=== PATIENT | male | born 1960 | race Caucasian/White ===

== ENCOUNTER → 2018-02-08 06:40 | Outpatient (CLI) | payer OTHER, SELFPAY ==
--- NOTE | 2018-02-08 06:42 | ECHOD_ITS ---
Reason For Study: CAD Procedure This was a 2D Doppler, Color Flow transthoracic echocardiogram. Exam performed in department. Left Ventricle Normal LV size. Left ventricular systolic function is normal. The estimated ejection fraction is 60 %. Normal diastology for age. No regional wall motion abnormalities noted. Right Ventricle Normal RV size. Normal systolic function. Atria Normal left atrium. Normal right atrium. Mitral Valve Normal mitral valve. Mild (1+) eccentric mitral valve insufficiency. Tricuspid Valve Normal tricuspid valve. Aortic Valve Normal aortic valve. Pulmonic Valve Normal pulmonic valve. Great Vessels Normal aortic root. The pulmonary artery is normal size. Normal inferior vena cava. Pericardium/Pleural No pericardial effusion. MMode/2D Measurements & Calculations LVIDd: 4.6 cm IVSd: 1.1 cm Ao root diam: 2.9 cm LVIDs: 3.7 cm LVPWd: 1.2 cm LA dimension: 3.6 cm RVDd: 2.9 cm FS: 20.8 % LAV(MOD-bp): 33.1 ml LA A4 area: 13.0 cm2 RA A4 area: 13.6 cm2 LAV(MOD-bp) Indexed: 17.0 ml/m2 LAV(MOD-sp2): 38.0 ml LAV(MOD-sp4): 28.6 ml Doppler Measurements & Calculations MV E max hao: 70.3 cm/sec Lat Peak E' Hao: 7.8 cm/sec Med Peak E' Hao: 6.1 cm/sec MV A max hao: 58.6 cm/sec E/E' lat: 9.1 E/E' med: 11.4 MV E/A: 1.2 Ao V2 max: 116.9 cm/sec LV V1 max: 98.1 cm/sec PA V2 max: 102.9 cm/sec Ao max P.5 mmHg LV V1 max P.8 mmHg Interpretation Summary Normal LV size. Left ventricular systolic function is normal. The estimated ejection fraction is 60 %. Normal diastology for age. Mild (1+) eccentric mitral valve insufficiency. Structurally normal valves. Ordering Physician: Frantz Treviño Referring Physician: MD Antoni Monty Performed By: Riana Mccarty, SANDI
--- NOTE | 2018-02-08 09:16 | STRESSREP ---
Stress Test Report Exercise myocardial perfusion stress test. 57-year-old man with a history of atherosclerotic cardiovascular disease. Medications Toprol Plavix aspirin metformin atorvastatin. Stress protocol. Resting EKG demonstrates normal sinus rhythm with a rate of 70 bpm normal intervals and noted resting blood pressure 142/84 mmHg. The patient exercised according to regular Goyo protocol for total duration of 8 minutes attaining 123 bpm which was 76% maximum predicted heart rate the maximum workload attained was 10.1 metabolic equivalents. The patient maintained sinus rhythm throughout the recording. At rest there were no ST or T-wave changes noted suggest ischemia peak exercise upsloping ST changes only were noted with no meet the criteria for ischemia. The resting blood pressure is 142/84 with a peak blood pressure 170/80 mmHg. Myocardial perfusion protocol. 11.9 mCi of technetium 99m sestamibi was injected at rest. The patient exercised according to regular Goyo protocol for 8 minutes attaining 10.1 metabolic equivalents. At rest there were no ST or T-wave changes noticed ischemia peak exercise 33.9 mCi of technetium 99m sestamibi was injected stress images were obtained stress and rest images were reconstructed and compared in the short axis vertical long and horizontal long axis. Gated images were also obtained Perfusion SPECT analysis. Review of the stress images demonstrate normal uptake of tracer noted in all areas of the myocardium. The resting images similarly demonstrate normal uptake of tracer noted in all areas of the myocardium. No areas of reversibility are noted suggest ischemia no previous infarct is noted. Gated SPECT analysis: The gated ejection fraction is 62%. Conclusion: Normal exercise myocardial perfusion stress test at a high workload. Preserved ejection fraction. No clinical angina noted.
== END ==
PROVIDERS: Family Provider Family Medicine; PCP Family Medicine; Visit Provider Internal Medicine Cardiovascular Disease
DX: I25.10 Atherosclerotic heart disease of native coronary artery without angina pectoris (principal)
CPT/HCPCS: 78452; 93017; 93306; A9500; A4216

== ENCOUNTER 2018-09-29 10:19 | Emergency (ER) | payer OTHER, SELFPAY ==
[2018-09-29 10:21] VITALS: BP 141/97; PULSE 81; RESP 14; TEMP 36.6; O2SAT 95; BMI 28.5
[2018-09-29] MEDS: 0.9% Normal Saline 1,000 ML 1000 ML IV (11:19)
[2018-09-29 11:20] VITALS: BP 157/84; PULSE 69; RESP 14; O2SAT 98
[2018-09-29 11:24] LABS: Absolute Lymphocyte Count 1.11 X10^3/ul (0.83-4.51); Absolute Neutrophil Count 4.5 X10^3/uL (2.0-7.7); Basophil% 0.3 % (0-1); Eosinophil# 0.08 X10^3/uL; Eosinophils% 1.3 % (0-5); Hematocrit 49.8 % (40-54); Lymphocyte # 1.11 X10^3/ul (4.0); Lymphocyte % 18.1 % (19-41); Mean Corp Hgb Conc 34.1 g/gl (32-36); Mean Corpuscular Hgb 31.6 pg (27.0-32.0); Mean Corpuscular Volume 92.6 fL (80-94); Mean Platelet Vol. 9.8 fl (6.2-12.0); Monocyte# 0.45 X10^3/uL; Monocyte% 7.4 % (0-10); Neutrophil # 4.46 X10^3/uL (2.7-7.7); Neutrophil % 72.9 % (47-70); Platelet Count 174 K/mm3 (150-450); RBC Distribution Width CV 13.9 % (11.6-14.6); RBC Distribution Width SD 46.6 fl (35.1-43.9); Red Blood Count 5.38 M/mm3 (4.6-6.2); White Blood Count 6.1 K/mm3 (4.4-11.0)
[2018-09-29 11:25] LABS: Basophil# 0.02 X10^3/uL; POSITIVE COUNT NO; POSITIVE DIFFERENTIAL NO; POSITIVE MORPHOLOGY NO
[2018-09-29 11:35] LABS: Anion Gap 8 (5-15); BUN 10 mg/dL (7-18); BUN/Creat Ratio 9.9 RATIO (10-20); Calcium,Total 8.5 mg/dL (8.5-10.1); Chloride 104 mmol/L (98-107); Creatinine, Serum 1.01 mg/dL (0.70-1.30); EST Glomerular Filtration Rate 80 mL/min (>60); Est Glom Filt Rate - Afr Amer 97 mL/min (>60); Estimated Creatinine Clearance 76.19 ml/min; Glucose 200 mg/dL (74-106); Potassium 4.5 mmol/L (3.5-5.1); Sodium Level 139 mmol/L (136-145)
[2018-09-29 13:04] VITALS: BP 132/79; PULSE 71; RESP 14; O2SAT 95
[2018-09-29 13:18] VITALS: BP 139/85; BP 142/97; BP 153/100; PULSE 73; PULSE 77; PULSE 85
--- NOTE | 2018-09-29 13:35 | ED.VISSUMM ---
- ER Visit Summary Date of Service: 09/29/18 Chief Complaint: Dizziness History of Present Illness: The patient is a 58 M who presents with dizziness that has been constant for the past 2 days. Patient states his dizziness is worse with sitting and standing. Patient states he feels lightheaded when he sits up or stands up. Patient states this is similar to the symptoms he had before when he was dehydrated. Patient states his dizziness improves when he lays flat. Patient denies any spinning sensation. Patient admits to some nausea but denies any vomiting. Patient denies any chest pain or shortness of breath. Physical Examination: Vital signs are stable. Patient is afebrile. Patient is in no acute distress. Cranial nerves II through XII are intact. There are no focal motor or sensory deficits noted. Pupils are equal, round, and reactive to light bilaterally. Extra ocular muscles are intact. Oral mucosa is pink and moist. Neck is supple. Trachea is midline. No JVD noted. Heart was regular rate and rhythm. Lungs are clear and equal bilateral. Abdomen is soft nontender. The remaining physical exam is within normal limits. Test Results: CBC and basic metabolic profile were obtained and were essentially within normal limits. Emergency Department Course and Treatment: Patient was given IV fluids here. Orthostatic vital signs were obtained and were normal. Patient felt better on reevaluation. Patient was instructed to follow-up with his primary care physician in 5-7 days. Patient understood and was agreeable with the plan. All questions were answered. Disposition: Discharge home Impression: Mild dehydration This note was generated with [employer] dictation software. It may contain incorrect words, spelling, and punctuation that were not noted in review of the chart prior to signing ED Disposition - Plan for ED Patient: Disposition: Home or Assisted Living Chief Complaint: Dizziness Diagnosis: Dehydration, mild Instructions: ED Dehydration Referrals: Monty Corrales MD [Primary Care Provider] -
[2018-09-29 14:08] VITALS: BP 145/90; PULSE 75; RESP 19; O2SAT 96
== END 2018-09-29 14:08 | disposition home or self-care (01) ==
PROVIDERS: Emergency Provider Emergency Medicine; Family Provider Family Medicine; PCP Family Medicine
DX: E86.0 Dehydration (principal); I25.2 Old myocardial infarction; E11.9 Type 2 diabetes mellitus without complications; Z79.82 Long term (current) use of aspirin; Z79.84 Long term (current) use of oral hypoglycemic drugs; Z79.899 Other long term (current) drug therapy
CPT/HCPCS: 80048; 85025; 96360; 96361; 99285; J7030; A4216

== ENCOUNTER → 2018-10-30 11:00 | Outpatient (CLI) | payer OTHER, SELFPAY ==
[2018-10-30 10:37] VITALS: BMI 28.5
--- NOTE | 2018-10-30 11:16 | RAD_ITS ---
STUDY: X-RAY CHEST REASON FOR EXAM: Male, 58 years old. Cough. TECHNIQUE: Frontal and lateral views of the chest. COMPARISON: January 28, 2016 FINDINGS: There is stable mild hyperexpansion with granulomatous calcification. There is no demonstrated pleural abnormality. Normal size heart. Normal mediastinum and ray. Normal visualized pulmonary arteries. Normal visualized aortic arch and descending thoracic aorta. Normal visualized thoracic spine. Normal visualized ribs, clavicles, and shoulders. There is no demonstrated abnormality of the visualized soft tissue structures of the upper abdomen. RAD/Chest PA and Lateral IMPRESSION: Stable appearance of the chest with no new or acute finding. Electronically Signed: Ted Rubalcava MD at 11:41 EST , Service support ,
== END ==
PROVIDERS: Family Provider Family Medicine; PCP Physician Assistant Surgical; Visit Provider Physician Assistant Surgical
DX: J20.9 Acute bronchitis, unspecified (principal)
CPT/HCPCS: 71046

== ENCOUNTER 2021-11-12 09:35 | Outpatient (CLI) | payer OTHER, SELFPAY ==
[2021-11-12] MEDS: 0.9% Saline Lock 10 ML Syringe IV ×2 (09:57→10:54)
[2021-11-12 09:58] VITALS: BP 155/92; PULSE 82; RESP 18; TEMP 36.4; O2SAT 99; BMI 28.1
[2021-11-12 10:19] VITALS: BP 154/100; PULSE 81; RESP 16; TEMP 36.8; O2SAT 99
[2021-11-12 10:50] VITALS: BP 159/100; PULSE 80; RESP 18; TEMP 37.2; O2SAT 97
[2021-11-12] MEDS: DiphenhydrAMINE 50 MG/ML Syringe IV (10:54)
--- NOTE | 2021-11-12 10:54 | NURSING ---
Pt c/o itching to lower abdomen. Pty has redness/rash/hives noted to lower abdomen and redness to entire back. Pt denies any other complaints other than itching. Pt medicated w/ benadryl per orders. No s/s of resp difficulty noted. VSS. Will cont to monitor.
[2021-11-12 11:26] VITALS: BP 145/89; PULSE 78; RESP 16; TEMP 36.7; O2SAT 97
[2021-11-12 12:09] VITALS: BP 144/88; PULSE 84; RESP 16; TEMP 36.8; O2SAT 98
== END 2021-11-12 23:59 | disposition home or self-care (01) ==
LOC: MS3OUT 09:36 → MS3 09:36
PROVIDERS: PCP Family Medicine; Referring Provider Nurse Practitioner Adult Health; Visit Provider Nurse Practitioner Adult Health
DX: Z23 Encounter for immunization (principal); E11.9 Type 2 diabetes mellitus without complications; U07.1 COVID-19
CPT/HCPCS: J7050; M0243; A4216; Q0244

== ENCOUNTER 2022-02-08 12:16 | Outpatient (CLI) | payer OTHER, SELFPAY ==
[2022-02-08 12:26] LABS: Hematocrit 51.8 % (40-54); Hemoglobin 17.8 g/dL (13.0-16.5); Mean Corp Hgb Conc 34.4 g/dL (32-36); Mean Corpuscular Volume 90.2 fL (80-94); Mean Platelet Vol. 10.6 fl (6.2-12.0); Platelet Count 251 K/mm3 (150-450); RBC Distribution Width CV 14.6 % (11.6-14.6); RBC Distribution Width SD 48.5 fl (35.1-43.9); Red Blood Count 5.74 M/mm3 (4.6-6.2); White Blood Count 8.3 K/mm3 (4.4-11.0)
[2022-02-08 12:37] LABS: Albumin, Serum 3.8 g/dL (3.2-5.0); BUN 73 mg/dL (7-18); BUN/Creat Ratio 23.5 RATIO (10-20); Calcium,Total 8.2 mg/dL (8.5-10.1); Chloride 90 mmol/L (98-107); EST Glomerular Filtration Rate 22 mL/min (>60); Est Glom Filt Rate - Afr Amer 26 mL/min (>60); Glucose 285 mg/dL (74-106); Phosphorus 7.3 mg/dL (2.5-4.9); Potassium 5.1 mmol/L (3.5-5.1); Sodium Level 130 mmol/L (136-145)
== END 2022-02-08 23:59 | disposition home or self-care (01) ==
LOC: LABSPEC 12:18
PROVIDERS: PCP Family Medicine; Visit Provider Nurse Practitioner
DX: E86.0 Dehydration (principal)
CPT/HCPCS: 80069; 85027

== ENCOUNTER 2022-02-08 14:16 | Inpatient (IN) | payer OTHER, SELFPAY ==
[2022-02-08 14:17] VITALS: BP 101/82; PULSE 122; RESP 16; TEMP 36.1; O2SAT 92; BMI 28.7
[2022-02-08 14:20] VITALS: BP 101/82; PULSE 122; RESP 16; TEMP 36.1; O2SAT 92
--- NOTE | 2022-02-08 14:56 | ED.RN ---
PTS FAMILY MEMBER CAME UP STATING PT HAS ACUTE KIDNEY INJURY ACCORDING TO PCP OFFICE. VERIFIED WE DO HAVE TEST RESULTS FROM PCP OFFICE AND WILL GET THE PT BACK SOON WE CAN. APOLOGIZED FOR THE BUT REITERATED HE WILL GO TO A ROOM SOON WE CAN
--- NOTE | 2022-02-08 15:13 | ED.RN ---
PTS FAMILY MEMBER CAME UP ASKING WHY HE WASN'T IN A ROOM YET IF WE KNEW HE HAD ACUTE KIDNEY INJURY. AGAIN EXPLAINED WE DIDN'T HAVE A ROOM AVAILABLE AND WOULD AGAIN GET HIM BACK SOON WE CAN. ASKED IF PT COULD LAY ON THE FLOOR AND TOLD HER NO THAT WOULD NOT BE APPROPRIATE AND WE WOULD AGAIN GET HIM BACK SOON WE COULD.
--- NOTE | 2022-02-08 15:21 | ED.RN ---
PT FAMILY MEMBER TOLD SCREENER HE WAS GOING TO LAY ON THE FLOOR AND DIDN'T CARE WHAT THE NURSE SAID. THE FAMILY MEMBER THEN TOOK A PICTURE OF THE PT LAYING ON THE FLOOR WITH HER PHONE. THIS NURSE WENT AND EXPLAINED THAT HE CAN NOT LAY ON THE FLOOR IN THE HALLWAY AND IT WAS NOT SAFE FOR HIM OR OTHER TO DO SO. DURING THIS CONVERSATION PT STATED HE WAS HAVING SOME PAIN. EXPLAINED I WOULD GET HIM BACK SOON I COULD. HE GOT UP OFF THE FLOOR WITHOUT DIFFICULTY. FAMILY MEMBER WAS ALSO TAKING PICTURE OF THIS NURSE WITH HER PHONE AND THIS NURSE ASKED THAT SHE NOT DO THAT. FAMILY MEMBER THEN TOOK ANOTHER PICTURE AT WHICH TIME THIS NURSE STATED SECURITY COULD COME OUT IF THERE WAS GOING TO BE CONTINUED PROBLEMS. CHARGE NURSE WAS NOTIFIED OF THE SITUATION
--- NOTE | 2022-02-08 15:39 | EX.ED.DYSGE1 ---
HPI History of Present Illness Chief Complaint: Abn Labs Informant: patient Narrative Narrative: Patient's had nausea vomiting and diarrhea for 3 days. It is slightly better today but he still cannot take p.o. If he tries to drink anything he vomits. He has never vomited blood. He denies fever. About a day or so into this he started to get some epigastric discomfort but he thinks that is just from vomiting. His symptoms did not start with abdominal pain. He denies fevers or chills. He has no cough trouble breathing. He denies urinary symptoms. He states his sister had the same symptoms recently but she is now better. He was around her several times in the past week. Patient had 2 Pfizer immunizations and COVID in November. No prior abdominal surgeries. He has not been on any antibiotics that he knows. He does not think he was on any during Covid. [facility] Medical History (Updated 02/08/22 @ 17:[address] Barrera Pearl MD) Atherosclerotic heart disease of [place] coronary artery without angina pectoris DM w/o complication type II, uncontrolled Essential (primary) hypertension History of dehydration History of non-ST elevation myocardial infarction (NSTEMI) (04/16/10) Hyperlipidemia Shoulder pain Home Medications aspirin 81 mg tablet,delayed release 81 mg PO DAILY 10/30/18 [History Last Taken Unknown] losartan 25 mg tablet 25 mg PO DAILY tab 10/30/18 [History Last Taken Unknown] dulaglutide 0.75 mg/0.5 mL subcutaneous pen injector 0.75 mg SC QWEEK 01/23/19 [History Last Taken Unknown] insulin glargine 100 unit/mL (3 mL) subcutaneous pen 54 unit SUBCUT QHS 01/22/21 [History Last Taken Unknown] atorvastatin 80 mg tablet 80 mg PO QHS #90 tab 08/26/21 [Rx Last Taken Unknown] clopidogrel 75 mg tablet 75 mg PO DAILY #90 tab 11/12/21 [Rx Last Taken Unknown] metoprolol succinate 100 mg tablet,extended release 24 hr 100 mg PO DAILY #90 tab 11/12/21 [Rx Last Taken Unknown] glyburide 5 mg tablet 5 mg PO DAILY 01/22/22 [History Last Taken Unknown] Allergy/AdvReac Type Severity Reaction Status Date / Time atenolol AdvReac Severe Can't Verified 02/08/22 14:19 recall reaction dexamethasone AdvReac Severe Can't Verified 02/08/22 14:19 recall reaction quinapril [From Accupril] AdvReac Severe Can't Verified 02/08/22 14:19 recall reaction A BP MEDICINE Allergy Other Uncoded 02/08/22 14:19 Family History Father Lung cancer Mother Cancer Brother COPD (chronic obstructive pulmonary disease) Brother Diabetes Surgical History History of coronary artery stent placement (04/16/10) Social History Smoking Status: Former smoker pack-years: 25 alcohol intake: former year quit: 2018 substance use type: marijuana ROS ROS ED Constitutional Constitutional ED: Denies chills or fever(s) Eyes Eyes: Denies blurry vision ENT ENT ED: Denies rhinorrhea or sore throat Cardiovascular Cardiovascular: Denies chest pain or palpitations Respiratory/Chest Respiratory/Chest: Denies cough or dyspnea Gastrointestinal Gastrointestinal: Reports abdominal pain, diarrhea, nausea and vomiting; Denies constipation or melena Genitourinary Genitourinary ED: Denies dysuria Musculoskeletal Musculoskeletal: Denies myalgias Integumentary Denies rash Neurologic Neurologic: Denies headache(s) Endocrine Endocrinology: Denies polydipsia or polyuria Allergic/Immunologic Allergic/Immunologic ED: Denies urticaria EXAM Physical Exam Const Vital Signs: 02/08/22 14:17 02/08/22 14:20 02/08/22 15:31 Temperature 96.9 F L 96.9 F L Temperature Source Temporal Temporal Pulse Rate 122 H 122 H Respiratory Rate 16 16 Respiratory Effort Normal Respiratory Pattern Normal Blood Pressure 101/82 H 101/82 H Blood Pressure Mean 88 88 Pulse Ox 92 92 Oxygen Delivery Method Room Air Room Air Positive well nourished and well developed General Appearance ED: well developed and NAD; Negative for cyanotic HEENT Reports dry mucous membranes Mouth ED: Yes dry mucous membranes Mouth: dry mucous membranes Eyes General Eye ED: Negative for pale conjunctiva Neck no JVD Chest Wall inspection of chest normal Resp normal respiratory effort and clear to auscultation bilaterally Cardio regular rhythm Rate: tachycardic GI normal to inspection, nondistended, normoactive bowel sounds and non-tender GI Narrative: Patient states he feels a little discomfort in the epigastric area but there is no actual tenderness. There is a small umbilical hernia but it is completely nontender and is able to be reduced. He states his abdomen is a little flatter than normal. Palpation: soft Back/Spine no CVA tenderness Extremity General Extremety ED: Negative for tenderness Neuro oriented x3 Sensorium / Orientation: alert Skin no rashes or lesions noted MDM MDM MDM Narrative Medical decision making narrative: Urine shows no acute process. I reviewed blood work that was already done today prior to his arrival. He has acute kidney injury with creatinine that has tripled from his last. Sodium is slightly low. Phosphorus is elevated. Since patient still has nausea, is dehydrated, cannot take p.o., has acute kidney injury and tachycardia we will bring him in the hospital. I discussed case with hospitalist. Lab Data Attestation: I reviewed the patient's lab results. Labs: Laboratory Results - last 24 hr 02/08/22 16:12 Urine Color Yellow Urine Clarity Sl. Cloudy Urine pH 5.0 Ur Specific Carrie 1.030 Urine Protein 15 H Urine Glucose (UA) Normal Urine Ketones 5 H Urine Occult Blood Negative Urine Nitrite Negative Urine Bilirubin 3 H Urine Urobilinogen Normal Ur Leukocyte Esterase Negative Urine RBC 0 SEEN Urine WBC 0 SEEN Ur Squamous Epith Cells 0-5 SEEN Ur Transition Epith Cell 0 SEEN Amorphous Sediment 1+ URATE Urine Bacteria 0 SEEN Hyaline Casts 0-5 SEEN Urine Mucus 0 SEEN Discharge Plan Triage Chief Complaint: Abn Labs ED Provider: Barrera Pearl Dx/Rx/DC Orders Clinical Impression: Acute kidney injury, Dehydration, Acute hyponatremia Prescriptions: No Action Trulicity 0.75 mg/0.5 mL pen injector 0.75 mg SC QWEEK RF: 0 aspirin 81 mg tablet,delayed release (DR/EC) 81 mg PO DAILY RF: 0 losartan 25 mg tablet 25 mg PO DAILY RF: 0 insulin glargine 100 unit/mL (3 mL) insulin pen 54 unit subcut QHS RF: 0 glyburide 5 mg tablet 5 mg PO DAILY RF: 0 atorvastatin 80 mg tablet 80 mg PO QHS Qty: 90 RF: 3 metoprolol succinate [Toprol XL] 100 mg tablet extended release 24 hr 100 mg PO DAILY Qty: 90 RF: 3 clopidogrel 75 mg tablet 75 mg PO DAILY Qty: 90 RF: 3 Primary Care Provider: Monty Corrales Referrals: Monty Corrales MD [Primary Care Provider] - Disposition Disposition: Acute Care Hospital [facility]
[2022-02-08 16:19] LABS: Bacteria 0 SEEN /hpf (None Seen); Mucous, Urine 0 SEEN /hpf (<or=2+); Red Blood Cells-Urine 0 SEEN /hpf (0-5); White Blood Cells 0 SEEN /hpf (0-5)
[2022-02-08 16:27] LABS: Color, Urine Yellow (Yellow); Glucose, Dipstick Normal (Normal); Ketone-Dipstick 5 mg/dl (Negative); Leukocyte Esterase-Dipstick Negative /ul (Negative); Nitrite-Dipstick Negative (Negative); Occult Blood-Urine Negative /ul (Negative); Protein-Dipstick 15 mg/dl (Negative); Urine Clarity Sl. Cloudy (Clear); Urine Urobilinogen Normal (Normal)
[2022-02-08 16:36] LABS: Urine Bilirubin Dipstick 3 mg/dL (Negative)
[2022-02-08 16:38] LABS: Hyaline Cast 0-5 SEEN /lpf (0-5); Squamous Epithelial Cells - UA 0-5 SEEN /hpf (0-5); Transitional Epithelial - Ur 0 SEEN /hpf (0-5)
[2022-02-08 16:39] LABS: Amorphous Sediment 1+ URATE
--- NOTE | 2022-02-08 17:11 | HP.PCM.HOS_ITS ---
HPI - General General Date of Admission: 02/08/22 Date of Service: 02/08/22 Chief Complaint: Nausea and vomiting/abnormal labs HPI Narrative JOSIE MEDINA, is a 61 M who presented to the emergency department [facility] on 02/08/2022 with a chief complaint of abnormal labs. The patient has had nausea and vomiting with some intermittent diarrhea since Tuesday at 1 AM. He states that he feels overall he is improving but he still is unable to take oral fluids or food to much extent. He states that if he tries to drink anything he vomits. He denies any vomiting today however. He has had no hematemesis and has had no fever or chills. He states that his sister had this last week and he had some exposure to her previously. He has some intermittent epigastric pain but is denying any at this time. He has been vaccinated for COVID-19 and also had Covid in November 2021. He has not been on any recent antibiotics. In the emergency department he was noted to be afebrile with a temp of 96.9, tachycardic with heart rates in the 120s, his blood pressure was 101/82, his respiratory rate was 16 and his oxygen saturations were normal on room air. His CBC shows no elevation in his white count but does show an elevation in his hemoglobin at 17.8 however from previous lab in September 2018 he had a hemoglobin of 17. His platelet count is normal. His CHEM panel shows hyponatremia with a sodium of 130, hypochloremia with a chloride of 90, and elevated BUN at 73 and an elevated creatinine at 3.10. His blood sugar is 185. His serum phosphorus is 7.3. A UA was performed and shows significant concentration with a specific gravity of 1.03 and also demonstrates small amounts of protein, ketones, and bilirubin without any elevation in urobilinogen. Amorphous sediment was noted as well but there are no bacteria or white cells noted. Given his marked abnormal laboratory data he was admitted to the medical floor for IV hydration and antiemetics. FOR[facility] Medical History (Updated 02/08/22 @ 17:[address] Emy De La Rosa DO) Atherosclerotic heart disease of [place] coronary artery without angina pectoris COVID-19 Diabetes DM w/o complication type II, uncontrolled Erythrocytosis Essential (primary) hypertension History of dehydration History of non-ST elevation myocardial infarction (NSTEMI) (04/16/10) Hyperlipidemia Shoulder pain Tremor Home Medications aspirin 81 mg tablet,delayed release 81 mg PO DAILY 10/30/18 [History Last Taken Unknown] losartan 25 mg tablet 25 mg PO DAILY tab 10/30/18 [History Last Taken Unknown] dulaglutide 0.75 mg/0.5 mL subcutaneous pen injector 0.75 mg SC QWEEK 01/23/19 [History Last Taken Unknown] insulin glargine 100 unit/mL (3 mL) subcutaneous pen 54 unit SUBCUT QHS 01/22/21 [History Last Taken Unknown] atorvastatin 80 mg tablet 80 mg PO QHS #90 tab 08/26/21 [Rx Last Taken Unknown] clopidogrel 75 mg tablet 75 mg PO DAILY #90 tab 11/12/21 [Rx Last Taken Unknown] metoprolol succinate 100 mg tablet,extended release 24 hr 100 mg PO DAILY #90 tab 11/12/21 [Rx Last Taken Unknown] glyburide 5 mg tablet 5 mg PO DAILY 01/22/22 [History Last Taken Unknown] Allergy/AdvReac Type Severity Reaction Status Date / Time atenolol AdvReac Severe Can't Verified 02/08/22 14:19 recall reaction dexamethasone AdvReac Severe Can't Verified 02/08/22 14:19 recall reaction quinapril [From Accupril] AdvReac Severe Can't Verified 02/08/22 14:19 recall reaction A BP MEDICINE Allergy Other Uncoded 02/08/22 14:19 Family History Father Lung cancer Mother Cancer Brother COPD (chronic obstructive pulmonary disease) Brother Diabetes Surgical History History of coronary artery stent placement (04/16/10) Social History (Updated 02/08/22 @ 17:[address] Emy De La Rosa DO) Smoking Status: Former smoker pack-years: 25 alcohol intake: former year quit: 2018 substance use type: marijuana ROS Constitutional Constitutional: Reports anorexia, fatigue, malaise and weakness; Denies change in weight, chills, fever(s), night sweats or other Eyes Eyes: Denies blurry vision, change in eye color, change in vision, discharge from eye(s), double vision, erythema, eye pain, loss of vision or other ENT HEENT: Denies abnormal hearing, dysphagia, ear pain, epistaxis, headache(s), hearing loss, nasal congestion, nasal discharge, post nasal drip, sinus pressure, sore throat or other Cardiovascular Cardiovascular: Denies chest pain, claudication, dyspnea on exertion, edema, lightheadedness, orthopnea, palpitations, paroxysmal nocturnal dyspnea, rapid heart rate, syncope or other Respiratory/Chest Respiratory/Chest: Denies cough, dyspnea, excessive phlegm production, hemoptysis, productive cough, shortness of breath at rest, shortness of breath with exertion, wheezing or other Gastrointestinal Gastrointestinal: Reports abdominal pain, diarrhea, nausea and vomiting; Denies coffee ground emesis, constipation, dyspepsia, hematemesis, hematochezia, loose stools, melena or other Genitourinary Genitourinary: Denies burning urination, difficulty urinating, dysuria, hematuria, nocturia, urinary frequency, urinary hesitancy, urinary incontinence, urinary urgency or other Musculoskeletal Musculoskeletal: Denies arthralgias, back pain, joint pain, joint stiffness, joint swelling, myalgias, neck pain or other Neurologic Neurologic: Denies abnormal gait, abnormal speech, confusion, disequilibrium, dizziness, focal weakness, headache(s), numbness, paresthesias, seizure-like activity, seizures, syncope, tingling, tremor(s) or other Psychiatric Psychiatric: Denies anxiety, depression, homicidal ideation, suicidal ideation or other Endocrine Endocrinology: Denies change in body appearance, cold intolerance, excessive sweating, heat intolerance, polydipsia, polyuria or other Hematologic/Lymphatic Hematologic/Lymphatic: Denies anemia, easy bleeding, easy bruising, lymphadenopathy or other Allergic/Immunologic Allergic/Immunologic: Denies rhinitis, hives, eczemia, asthma or other Vital Signs Vital Signs Vital Signs: 02/08/22 14:17 02/08/22 14:20 02/08/22 15:31 Temperature 96.9 F L 96.9 F L Temperature Source Temporal Temporal Pulse Rate 122 H 122 H Respiratory Rate 16 16 Respiratory Effort Normal Respiratory Pattern Normal Blood Pressure 101/82 H 101/82 H Blood Pressure Mean 88 88 Pulse Ox 92 92 Oxygen Delivery Method Room Air Room Air Weight Weight: 85.729 kg Body Mass Index (BMI) 28.7 Physical Exam Const alert, oriented x3, no apparent distress, average body habitus and well nourished Constitutional Narrative: An upper middle-aged white male lying in bed, appears as if he is not feeling well but nontoxic, no acute distress, at bedside General Appearance: cooperative HEENT normocephalic, head/scalp atraumatic and hearing grossly normal bilaterally HEENT Narrative: Upper edentulous, Mallampati is 2, no thrush is present, small oropharynx Eyes PERRL, EOMs intact bilaterally and conjunctivae normal Neck no lymphadenopathy, supple, no JVD and no carotid bruits Neck Narrative: Flat neck veins Resp normal respiratory effort, no retractions, no use of accessory muscles and clear to auscultation bilaterally Auscultation: Negative for crackles, rales, rhonchi or wheezes Cardio regular rhythm, S1 normal heart sound, S2 normal heart sound, no murmurs, no rub, no gallops, no clicks and no JVD Cardio Narrative: Mild tachycardia GI normal to inspection, nondistended, normoactive bowel sounds, soft to palpation, non-tender and non-distended; Negative for hepatosplenomegaly Extremity normal to inspection and no clubbing, cyanosis or edema Peripheral Pulses: Yes pulses 2+ throughout Skin no rashes or lesions noted, no wounds, No skin turgor normal, no jaundice, no petechiae and no mottling Neuro oriented x3, CN's II-XII intact bilaterally, moves all extremities and no focal motor deficits Neuro Narrative: Mild generalized weakness Sensorium / Orientation: awake and alert Speech: speech normal Psych Psych Narrative: Affect is flat but patient is appropriately interactive Results Lab / Micro Data Labs: Laboratory Results - last 24 hr 02/08/22 16:12: Urine Color Yellow, Urine Clarity Sl. Cloudy, Urine pH 5.0, Ur Specific [place] 1.030, Urine Protein 15 H, Urine Glucose (UA) Normal, Urine Ketones 5 H, Urine Occult Blood Negative, Urine Nitrite Negative, Urine Bilirubin 3 H, Urine Urobilinogen Normal, Ur Leukocyte Esterase Negative, Urine RBC 0 SEEN, Urine WBC 0 SEEN, Ur Squamous Epith Cells 0-5 SEEN, Ur Transition Epith Cell 0 SEEN, Amorphous Sediment 1+ URATE, Urine Bacteria 0 SEEN, Hyaline Casts 0-5 SEEN, Urine Mucus 0 SEEN Assessment & Plan Assessment/Plan (1) Acute kidney injury: (2) Dehydration: (3) Acute hyponatremia: (4) Gastroenteritis: PLAN: Acute kidney injury secondary to dehydration -Baseline serum creatinine is around 1 -Serum creatinine on admission is greater than 3 -UA looks significantly concentrated -Hold home losartan -Avoid nephrotoxins -LR at 125 cc/h -Repeat BMP in a.m. Acute gastroenteritis -Patient reports that he is clinically improving -As needed antiemetics -Fluids -Clear liquid diet for now and advance as able -No diarrhea today so will not perform enteric panel at this time -Suspect viral in nature -Monitor clinically Acute hyponatremia -Suspect hypovolemic hyponatremia given clinical presentation and labs -No further work-up at this time -LR at 125/h with repeat BMP in a.m. -Would consider further work-up if clinically not improved in the next 24 hours Tachycardia -Suspect related to dehydration -IV fluids as noted above -Monitor History of CAD/HPL/HTN -Continue aspirin -Continue Plavix -Continue -Hold losartan with HERON -Continue with Toprol DM-2 -Hold Trulicity and oral medications -Continue Lantus but reduce from 54 units at at bedtime to 30 units at at bedtime secondary to HERON/decreased p.o. intake -SSI -Accu-Cheks as ordered -Diet is clear liquid now but will advance to carb controlled cardiac once able DVT prophylaxis -Heparin 3 times daily -SCDs CODE STATUS -Full code as verified on admission the emergency department Charges/Coding Visit Charges Inpatient E&M: 54658 Init Hosp L3
[2022-02-08 17:19] VITALS: BP 106/78; PULSE 98; RESP 15; TEMP 36.7; O2SAT 97
--- NOTE | 2022-02-08 17:37 | NURSING ---
317 MARITO ACUTE KIDNEY INJURY, DEHYDRATION, TACHYCARDIA
[2022-02-08 17:45] VITALS: BMI 27.3
[2022-02-08 18:19] VITALS: BP 102/58; PULSE 98; RESP 16; TEMP 37.2; O2SAT 93
[2022-02-08] MEDS: 0.9% Saline Lock 10 ML Syringe IV (18:43)
[2022-02-08] MEDS: Lactated Ringers 1,000 ML 125 ML IV (18:43)
[2022-02-08 20:48] VITALS: O2SAT 93
[2022-02-08 22:50] LABS: Bedside Glucose 128 mg/dL (74-106)
[2022-02-08] MEDS: Heparin Injection (Vial) 5,000 UNIT/ML VIAL 5000 UNIT SC (22:51)
[2022-02-08] MEDS: Atorvastatin Calcium 80 MG Tablet PO (22:51)
[2022-02-08 23:00] VITALS: BP 113/87; PULSE 112; RESP 16; TEMP 36.9; O2SAT 95
[2022-02-09] MEDS: Lactated Ringers 1,000 ML 125 ML IV ×4 (01:47→21:20)
[2022-02-09 05:00] VITALS: BP 129/71; PULSE 86; RESP 18; TEMP 37; O2SAT 95
[2022-02-09 05:17] LABS: Hematocrit 45.7 % (40-54); Mean Corpuscular Hgb 30.9 pg (27.0-32.0); Mean Corpuscular Volume 88.4 fL (80-94); Mean Platelet Vol. 10.1 fl (6.2-12.0); POSITIVE MORPHOLOGY YES; Platelet Count 234 K/mm3 (150-450); RBC Distribution Width CV 14.2 % (11.6-14.6); RBC Distribution Width SD 45.6 fl (35.1-43.9); Red Blood Count 5.17 M/mm3 (4.6-6.2); White Blood Count 6.6 K/mm3 (4.4-11.0)
[2022-02-09 05:35] LABS: Differential Indicated MANUAL DIFF
[2022-02-09 05:39] LABS: Absolute Lymphocyte Count 1.59 X10^3/uL (0.83-4.51); Absolute Neutrophil Count 4.4 X10^3/uL (2.0-7.7); Neutrophil-Band 61 % (0-5); Neutrophil-Segmented 6 % (47-70); Total Cells Counted 100 (MANUAL DIFF)
[2022-02-09 05:40] LABS: Atypical Lymphocyte 2+ %; Lymphocyte 24 % (19-41); Monocyte 9 % (0-10); Platelet Estimate ADEQUATE (ADEQ); Red Cell Morphology NORM C+C NORMAL (NORM C&C)
[2022-02-09 05:48] LABS: ALB/GLOB Ratio 0.9 RATIO (0.9-2.4); AST(SGOT) 23 U/L (15-37); Alanine Aminotransfer ALT/SGPT 35 U/L (16-61); Albumin, Serum 3.2 g/dL (3.2-5.0); Alkaline Phosphatase 57 U/L (45-117); Anion Gap 7 (5-15); BUN 73 mg/dL (7-18); BUN/Creat Ratio 46.8 RATIO (10-20); Calcium,Total 7.6 mg/dL (8.5-10.1); Chloride 100 mmol/L (98-107); Creatinine, Serum 1.56 mg/dL (0.70-1.30); EST Glomerular Filtration Rate 48 mL/min (>60); Est Glom Filt Rate - Afr Amer 58 mL/min (>60); Globulin 3.5 g/dL (2.2-4.2); Glucose 72 mg/dL (74-106); Magnesium 1.7 mg/dL (1.6-2.6); Phosphorus 3.1 mg/dL (2.5-4.9); Potassium 3.6 mmol/L (3.5-5.1); Protein, Total 6.7 g/dL (6.4-8.2); Sodium Level 134 mmol/L (136-145)
[2022-02-09] MEDS: Heparin Injection (Vial) 5,000 UNIT/ML VIAL 5000 UNIT SC ×3 (05:55→22:18)
[2022-02-09 06:05] LABS: Bedside Glucose 88 mg/dL (74-106)
[2022-02-09 07:55] VITALS: BP 140/83; PULSE 88; RESP 16; TEMP 36.7; O2SAT 97
[2022-02-09] MEDS: Aspirin E.C. 81 MG Tablet PO (08:04)
--- NOTE | 2022-02-09 09:30 | PN.HOSP_ITS ---
Subjective Subjective Follow-up for HERON and gastroenteritis Patient is still having diarrhea although the frequency has decreased. Patient had 4-5 times loose bowel movement, watery yesterday after admission and 2 in the morning. It is nonbloody. No mucus. Mild upper abdominal cramps. Creatinine is still elevated but improving Objective Data Objective Data Vital Signs: Vital Signs Temp Pulse Resp BP Pulse Ox 98.6 F 86 18 129/71 H 95 02/09/22 05:00 02/09/22 05:00 02/09/22 05:00 02/09/22 05:00 02/09/22 05:00 Oxygen Delivery Method Room Air Weight: 180 lb Body Mass Index (BMI) 27.3 Intake & Output: Intake and Output for Last 24 Hours 02/07/22 02/08/22 02/09/22 23:59 23:59 23:59 Intake Total 883.33 / 883.33 Balance 883.33 / 883.33 Lab / Micro Data Result Diagrams: 02/09/22 04:38 02/09/22 04:38 Labs: Laboratory Results - last 24 hr 02/08/22 16:12: Urine Color Yellow, Urine Clarity Sl. Cloudy, Urine pH 5.0, Ur Specific [place] 1.030, Urine Protein 15 H, Urine Glucose (UA) Normal, Urine K etones 5 H, Urine Occult Blood Negative, Urine Nitrite Negative, Urine Bilirubin 3 H, Urine Urobilinogen Normal, Ur Leukocyte Esterase Negative, Urine RBC 0 SEEN, Urine WBC 0 SEEN, Ur Squamous Epith Cells 0-5 SEEN, Ur Transition Epith Cell 0 SEEN, Amorphous Sediment 1+ URATE, Urine Bacteria 0 SEEN, Hyaline Casts 0-5 SEEN, Urine Mucus 0 SEEN 02/08/22 22:47: POC Glucose 128 H 02/09/22 04:38: WBC 6.6, RBC 5.17, Hgb 16.0, Hct 45.7, MCV 88.4, MCH 30.9, MCHC 35.0, RDW Std Deviation 45.6 H, RDW Coeff of Mitul 14.2, Plt Count 234, MPV 10.1, Immature Gran % (Auto) SIGN PAINTER APPRENTICE, Neut % (Auto) SIGN PAINTER APPRENTICE, Lymph % (Auto) SIGN PAINTER APPRENTICE, Ada % (Auto) SIGN PAINTER APPRENTICE, Eos % (Auto) SIGN PAINTER APPRENTICE, Baso % (Auto) SIGN PAINTER APPRENTICE, Absolute Neuts (auto) 4.4, Absolute Lymphs (auto) 1.59, Total Counted 100, Neutrophils % (Manual) 6 L, Band Neutrophils % 61 H, Lymphocytes % (Manual) 24, Monocytes % (Manual) 9, Nucleated RBC % SIGN PAINTER APPRENTICE, Diff Path Review May foll, Atypical Lymphocytes 2+, Platelet Estimate ADEQUATE, RBC Morphology NORM C+C 02/09/22 04:38: Sodium 134 L, Potassium 3.6, Chloride 100, Carbon Dioxide 27.0, Anion Gap 7, BUN 73 H, Creatinine 1.56 H, Estim Creat Clear Calc 47.50, Est GFR (MDRD) Af Amer 58 L, Est GFR (MDRD) Non-Af 48 L, BUN/Creatinine Ratio 46.8 H, Glucose 72 L, Calcium 7.6 L, Phosphorus 3.1, Magnesium 1.7, Total Bilirubin 0.80, AST 23, ALT 35, Alkaline Phosphatase 57, Total Protein 6.7, Albumin 3.2, Globulin 3.5, Albumin/Globulin Ratio 0.9 02/09/22 05:52: POC Glucose 88 Physical Exam Narrative General: Alert, Oriented x3, Cooperative HEENT: Atraumatic, PERRLA, EOMI, Normocephalic Oral: No Gingival or Mucosal Lesions/ Ulcerations Neck: Supple, No JVD, Negative Carotid Bruits Lungs: Air entry diminished in bilateral lung bases. No crepitation/rhonchi Cardiovascular: Regular rate, Regular Rhythm, Normal S1, Normal S2, No murmurs Abdomen: Mild tenderness epigastric and upper abdomen. Bowel Sounds Present, Soft, Non-Distended : No renal angle tenderness. No suprapubic tenderness. Extremities: No edema, Capillary Refill Less than 3 Seconds Skin: No rashes, No breakdown Musculoskeletal: No Tenderness to Palpation of Joints or Extremities Neurological: Cranial nerves II-XII grossly intact, DTR 2+/4 and Symmetrical, Neuro grossly intact Psych/Mental Status: Normal Affect, Appropriate Assessment & Plan Assessment/Plan (1) Acute kidney injury: (2) Dehydration: (3) Acute hyponatremia: (4) Gastroenteritis: PLAN: The patient is 61-year-old male admitted with nausea, vomiting and intermittent diarrhea for 3 days prior to admit. Patient symptoms are improving but admitted with abnormal labs consistent with DKA. No no recent antibiotics 1. Acute kidney injury secondary to dehydration: Patient baseline creatinine is around 1. Admitted with creatinine 3.1. BUN 73. BUN/creatinine improving. Most recent 1.56. Patient still dehydrated. Continue IV fluid Ringer lactate 125 mill per hour. Monitor kidney function. Hold losartan and nephrotoxic m edications. UA SG 1.030 2 Acute gastroenteritis most likely viral: Patient diarrhea is improving. Responding to IV fluid. Mild upper abdominal pain. Supportive treatment with antiemetics. 3 acute hypotonic, hypovolemic hyponatremia: Sodium is 134. Chloride 100, K3.6. Anion gap 7. Bicarb 27. 4. Coronary artery disease, hypertension, dyslipidemia: Continue aspirin, Plavix and Toprol. Hold losartan. 5. DM-2: Glucose was 88 in the morning. Decrease Lantus dose to 25 units at bedtime. Glucose is low most related to decreased oral intake. Hold Trulicity and oral medications DVT prophylaxis -Heparin 5000 units 3 times daily -SCDs CODE STATUS -Full code as verified on admission Charges/Coding Visit Charges Inpatient E&M: 38582 Subs Hosp L2
[2022-02-09 10:44] VITALS: PULSE 88
[2022-02-09] MEDS: Metoprolol(XL)Succ 100 MG Tablet PO (10:44)
[2022-02-09] MEDS: Clopidogrel Bisulfate 75 MG Tablet PO (10:44)
--- NOTE | 2022-02-09 10:58 | CASEMGMT ---
JACOBY NICKERSON Assessment: Face to Face with pt for initial transition planning/care coordination assessment. RN KRISHAN introduced self and role at [facility], pt voices understanding and consents to assessment. Pt is A/O x4 and answers all questions appropriately at this time. Pt lying in bed in no distress. Care providers, pharmacy, and demographics verified/updated. Admitting Dx: gastroenteritis PCP:Antoni Specialists: [place], cardio Preferred Pharmacy: [facility] Insurance: [employer] Prescription Benefit: yes LW/HPOA: Pt denies having a LW/DPOA and denies need for info regarding AD. LNOK: Lianna Adams, ; Lucie Jeanette, dtr Living Arrangements: Pt lives with and son in a two story house with 1 step to enter. Pt reports he is I in ADL's and denies concerns at home. Transportation: Pt drives self and denies concerns with transportation. DME/HHC/SNF: Pt has a CPAP at home, BGM with lancets and strips as well as insulin and supplies. Pt denies hx of HHC or SNF stays. Pt states no concerns with going home at time of dc. Pt states no further concerns/needs. CM to follow. Advised pt to ask CM if any further question/concerns/needs arise, voices understanding. Pt Goal: Home Plan: Home
[2022-02-09 11:16] LABS: Bedside Glucose 126 mg/dL (74-106)
[2022-02-09 13:30] LABS: Pathologist Review Reviewed
[2022-02-09 13:52] VITALS: BP 146/89; PULSE 86; RESP 16; TEMP 36.8; O2SAT 97
[2022-02-09] MEDS: Potassium Chloride Oral Tablet 20 MEQ 40 MEQ PO (13:54)
[2022-02-09 16:31] LABS: Bedside Glucose 82 mg/dL (74-106)
[2022-02-09] MEDS: Atorvastatin Calcium 80 MG Tablet PO (22:18)
[2022-02-09 22:31] LABS: Bedside Glucose 92 mg/dL (74-106)
[2022-02-09 22:54] VITALS: BP 134/82; PULSE 82; RESP 16; TEMP 36.7; O2SAT 98
[2022-02-10 04:52] VITALS: BP 122/66; PULSE 76; RESP 16; TEMP 37; O2SAT 95
[2022-02-10] MEDS: Heparin Injection (Vial) 5,000 UNIT/ML VIAL 5000 UNIT SC (05:20)
[2022-02-10 05:31] LABS: Bedside Glucose 65 mg/dL (74-106)
[2022-02-10 06:31] LABS: Bedside Glucose 131 mg/dL (74-106)
[2022-02-10 08:18] VITALS: BP 114/61; PULSE 78; RESP 14; TEMP 36.6; O2SAT 97
[2022-02-10] MEDS: Clopidogrel Bisulfate 75 MG Tablet PO (09:12)
[2022-02-10 09:13] VITALS: BP 114/61; PULSE 78
[2022-02-10] MEDS: Aspirin E.C. 81 MG Tablet PO (09:13)
[2022-02-10] MEDS: Metoprolol(XL)Succ 100 MG Tablet PO (09:13)
--- NOTE | 2022-02-10 09:22 | PCM.DC ---
Discharge Instructions Diet Discharge Diet: Soft diet (for 3 days) Activity Discharge Activity: May Not Drive Weight Bearing Status: Weight bearing as tolerated Dressing / Incision Call your doctor if you observe: Fever of 101 or Higher, Coldness, Increased Pain, Numbness or Tingling, Change in Color, Inability to urinate, Inability to have a bowel movement, Shortness of breath, Dizziness, Fainting spells, Swelling in the ankles, Chest pain, Prolonged hiccupping, Increased palpitations (irregular heartbeat), Calf discomfort and Uncontrolled pain Follow Up Care Test Results: Test results from this visit will be discussed in further detail at your follow-up appointment, if applicable. Discharge Plan Admission Admit Date/Time: 02/08/22 17:06 Primary Reason for Your Visit: Acute viral gastroenteritis Attending Provider: Dipesh Garcia Primary Care Provider: Monty Corrales Discharge Orders/Prescriptions Prescriptions: Continued Trulicity 0.75 mg/0.5 mL pen injector 0.75 mg SC MENDOZA RF: 0 aspirin 81 mg tablet,delayed release (DR/EC) 81 mg PO DAILY RF: 0 trazodone 50 mg tablet 100 mg PO QHS PRN (Reason: Sleep) RF: 0 promethazine 25 mg tablet 25 mg PO BID PRN PRN (Reason: Nausea) RF: 0 atorvastatin 80 mg tablet 80 mg PO QHS RF: 0 clopidogrel 75 mg tablet 75 mg PO DAILY RF: 0 metoprolol succinate [Toprol XL] 100 mg tablet extended release 24 hr 100 mg PO DAILY Qty: 0 RF: 0 losartan 25 mg tablet 25 mg PO DAILY Qty: 0 RF: 0 Changed glimepiride 4 mg tablet 4 mg PO DAILY Qty: 0 RF: 0 insulin glargine 100 unit/mL (3 mL) insulin pen 30 unit subcut QHS Qty: 0 RF: 0 Referrals / Follow Up: Monty Corrales MD [Primary Care Provider] - In 1 Week (For acute kidney injury from acute gastroenteritis) Disposition Disposition (needs filled in before D/C Order can be placed): Home, Self Care
[2022-02-10 09:37] LABS: Anion Gap 2 (5-15); BUN 20 mg/dL (7-18); BUN/Creat Ratio 24.4 RATIO (10-20); Calcium,Total 7.8 mg/dL (8.5-10.1); Chloride 108 mmol/L (98-107); Creatinine, Serum 0.82 mg/dL (0.70-1.30); EST Glomerular Filtration Rate 101 mL/min (>60); Est Glom Filt Rate - Afr Amer 122 mL/min (>60); Estimated Creatinine Clearance 90.37 ml/min; Glucose 101 mg/dL (74-106); Potassium 3.6 mmol/L (3.5-5.1); Sodium Level 140 mmol/L (136-145)
--- NOTE | 2022-02-10 11:26 | DS.PCM_ITS ---
Providers Date of Admission: 02/08/22 Date of Discharge: 02/10/22 Primary Care Physician: Dr. Monty Corrales MD Reason For Visit: GASTROENTERITIS Diagnosis Discharge Diagnosis (1) Acute kidney injury: Status: Acute Code(s): N17.9 - Acute kidney failure, unspecified (2) Dehydration: Status: Acute Code(s): E86.0 - Dehydration (3) Acute hyponatremia: Status: Acute Code(s): E87.1 - Hypo-osmolality and hyponatremia (4) Gastroenteritis: Status: Acute Code(s): K52.9 - Noninfective gastroenteritis and colitis, unspecified Medications at Discharge Home Medications aspirin 81 mg tablet,delayed release 81 mg PO DAILY 10/30/18 dulaglutide 0.75 mg/0.5 mL subcutaneous pen injector 0.75 mg SC MENDOZA 01/23/19 atorvastatin 80 mg PO QHS 02/08/22 clopidogrel 75 mg PO DAILY 02/08/22 promethazine 25 mg PO BID PRN PRN 02/08/22 trazodone 100 mg PO QHS PRN 02/08/22 glimepiride 4 mg PO DAILY #0 tab 02/10/22 insulin glargine 30 unit SUBCUT QHS #0 ml 02/10/22 losartan 25 mg PO DAILY #0 tab 02/10/22 metoprolol succinate [Toprol XL] 100 mg PO DAILY #0 tab 02/10/22 Hospital Course Summary of Care Provided Hospital Course: The patient is 61-year-old male admitted with nausea, vomiting and intermittent diarrhea for 3 days prior to admit. Patient symptoms are improving but admitted with abnormal labs consistent with DKA. No no recent antibiotics 1. Acute kidney injury secondary to dehydration: Patient baseline creatinine is around 1. Admitted with creatinine 3.1. BUN 73. BUN/creatinine improving. Most recent 1.56. Patient was managed with IV fluid Ringer lactate 125 mill per hour. Monitor kidney function. Hold losartan and nephrotoxic medications. UA SG 1.030. Labs monitored. Acute kidney injury resolved. Mild hypokalemia, potassium corrected. 2 Acute gastroenteritis most likely viral: Patient diarrhea is improving. Re sponding to IV fluid. Abdominal pain resolved. Supportive treatment with antiemetics. Diarrhea has resolved. As per request from his , stool sample for C. difficile was sent though I have less suspicion as diarrhea has resolved. 3 acute hypotonic, hypovolemic hyponatremia: Sodium is 134. Chloride 100, K3.6. Anion gap 7. Bicarb 27. 4. Coronary artery disease, hypertension, dyslipidemia: Continue aspirin, Plavix and Toprol. Hold losartan. 5. DM-2 with labile glucose control due to gastroenteritis/poor oral intake: Glucose was 88 in the morning. Decrease Lantus dose to 25 units at bedtime. Glucose is low most related to decreased oral intake. Hold Trulicity and oral medications His blood sugar was low due to diarrhea, low oral intake therefore Lantus insulin and glimepiride decreased accordingly. Advised Accu-Chek/glucose check before meals and at bedtime and follow-up with PCP to titrate the dose. His appetite is improving. DVT prophylaxis -Heparin 5000 units 3 times daily -SCDs CODE STATUS -Full code as verified on admission Discharge medication reconciliation done. Discharge follow-up instructions completed. Discharge process discussed with the patient and all questions were answered to patient's satisfaction. Discharged home Total time spent, exact 35 minutes on discharge meds reconciliation, examination, coordination of care with nurses and ancillary staff, review of imaging and blood test and discussion with the patient on follow-up instruc tions. Physical Exam Narrative Seen and examined on the day of discharge. Diarrhea has resolved. Patient last bowel movement was yesterday night. It was semisolid. Patient's daughter work in [employer] office. He asked me about C. difficile which have low suspicion because his diarrhea has resolved, no abdominal cramps fever or signs of sepsis. Even though his stool sample was sent to lab for C. difficile. General: Alert, Oriented x3, Cooperative HEENT: Atraumatic, PERRLA, EOMI, Normocephalic Oral: No Gingival or Mucosal Lesions/ Ulcerations Neck: Supple, No JVD, Negative Carotid Bruits Lungs: Air entry diminished in bilateral lung bases. No crepitation/rhonchi Cardiovascular: Regular rate, Regular Rhythm, Normal S1, Normal S2, No murmurs Abdomen: Abdominal tenderness resolved. Bowel Sounds Present, Soft, Non- Distended : No renal angle tenderness. No suprapubic tenderness. Extremities: No edema, Capillary Refill Less than 3 Seconds Skin: No rashes, No breakdown Musculoskeletal: No Tenderness to Palpation of Joints or Extremities Neurological: Cranial nerves II-XII grossly intact, DTR 2+/4 and Symmetrical, Neuro grossly intact Psych/Mental Status: Normal Affect, Appropriate Medical Records Data Medical Nutrition Assessment Dietitian: Malnutrition Criteria Met Start: 02/09/22 14:06 Freq: Status: Active Protocol: Document 02/09/22 14:07 TARUN (Rec: 02/09/22 14:07 TARUN [id number]) Nutrition Malnutrition Evidence of Malnutrition Exists Yes Malnutrition (severe): Acute Illness/Injury Evidenced By Suboptimal Energy Intake ( Severe),Weight Loss (Severe) Clinical Problem Acute Disease or Injury Related Malnutrition Etiology severe, acute malnutrition r/t inadequate energy intake d/t GI dysfunction Signs/Symptoms as evidenced by unintentional wt loss of 9#/5% <1 month, estimated PO intake meeting < 50% of estimated energy needs x 5 days Status Active Problem Recommendation Dietitian Recommendations/Changes advance diet as tolerated to transitional; will add 4oz ensure clear w/ meals for additional calories/protein if consumed Weight / BMI Weight Weight: 180 lb 0.013 oz Body Mass Index (BMI) 27.3 ABG / Lab / Microbiology Data Result Diagrams: 02/09/22 04:38 02/10/22 08:59 Laboratory: Laboratory Results - last 24 hr 02/09/22 04:38: Diff Path Review Reviewed 02/09/22 16:24: POC Glucose 82 02/09/22 22:16: POC Glucose 92 02/10/22 05:17: POC Glucose 65 L 02/10/22 06:25: POC Glucose 131 H 02/10/22 08:59: Sodium 140, Potassium 3.6, Chloride 108 H, Carbon Dioxide 30.0, Anion Gap 2 L, BUN 20 H, Creatinine 0.82, Estim Creat Clear Calc 90.37, Est GFR (MDRD) Af Amer 122, Est GFR (MDRD) Non-Af 101, BUN/Creatinine Ratio 24.4 H, Glucose 101, Calcium 7.8 L D/C Instructions Discharge Diet: Soft diet (for 3 days) Weight Bearing Status: Weight bearing as tolerated Call your doctor if you observe: Fever of 101 or Higher, Coldness, Increased Pain, Numbness or Tingling, Change in Color, Inability to urinate, Inability to have a bowel movement, Shortness of breath, Dizziness, Fainting spells, Swelling in the ankles, Chest pain, Prolonged hiccupping, Increased palpitations (irregular heartbeat), Calf discomfort and Uncontrolled pain Meaningful Use Info Meaningful Use Diagnoses (Choose all that apply): None applicable Discharge Plan Admission Admit Date/Time: 02/08/22 17:06 Primary Reason for Your Visit: Acute viral gastroenteritis Attending Provider: Dipesh Garcia Primary Care Provider: Monty Corrales Discharge Orders/Prescriptions Prescriptions: Continued Trulicity 0.75 mg/0.5 mL pen injector 0.75 mg SC MENDOZA RF: 0 aspirin 81 mg tablet,delayed release (DR/EC) 81 mg PO DAILY RF: 0 trazodone 50 mg tablet 100 mg PO QHS PRN (Reason: Sleep) RF: 0 promethazine 25 mg tablet 25 mg PO BID PRN PRN (Reason: Nausea) RF: 0 atorvastatin 80 mg tablet 80 mg PO QHS RF: 0 clopidogrel 75 mg tablet 75 mg PO DAILY RF: 0 metoprolol succinate [Toprol XL] 100 mg tablet extended release 24 hr 100 mg PO DAILY Qty: 0 RF: 0 losartan 25 mg tablet 25 mg PO DAILY Qty: 0 RF: 0 Changed glimepiride 4 mg tablet 4 mg PO DAILY Qty: 0 RF: 0 insulin glargine 100 unit/mL (3 mL) insulin pen 30 unit subcut QHS Qty: 0 RF: 0 Referrals / Follow Up: Monty Corrales MD [Primary Care Provider] - In 1 Week (For acute kidney injury from acute gastroenteritis) Disposition Disposition (needs filled in before D/C Order can be placed): Home, Self Care Charges/Coding Visit Charges Inpatient E&M: 74520 Disch Hosp
[2022-02-10 11:36] LABS: Bedside Glucose 143 mg/dL (74-106)
[2022-02-10] MEDS: Potassium Chloride Oral Tablet 20 MEQ 40 MEQ PO (11:52)
[2022-02-10 11:53] VITALS: BP 143/72; PULSE 74; RESP 18; TEMP 36.7; O2SAT 99
== END 2022-02-10 13:10 | disposition home or self-care (01) | DRG 640 ==
LOC: ED 17:17 → MS3 17:30
PROVIDERS: Admitting Provider Internal Medicine; Emergency Provider Emergency Medicine; PCP Family Medicine; Visit Provider Internal Medicine
DX: E86.0 Dehydration (principal); E43 Unspecified severe protein-calorie malnutrition; N17.9 Acute kidney failure, unspecified; E87.1 Hypo-osmolality and hyponatremia; Z79.4 Long term (current) use of insulin; E11.9 Type 2 diabetes mellitus without complications; A08.4 Viral intestinal infection, unspecified; I10 Essential (primary) hypertension; E78.5 Hyperlipidemia, unspecified; I25.10 Atherosclerotic heart disease of native coronary artery without angina pectoris; E87.6 Hypokalemia; E86.1 Hypovolemia; I25.2 Old myocardial infarction; Z68.28 Body mass index [BMI] 28.0-28.9, adult; Z79.02 Long term (current) use of antithrombotics/antiplatelets; Z79.82 Long term (current) use of aspirin; Z79.84 Long term (current) use of oral hypoglycemic drugs; Z79.899 Other long term (current) drug therapy; Z87.891 Personal history of nicotine dependence; Z86.16 Personal history of COVID-19
CPT/HCPCS: 36415; 80048; 80053; 81001; 82962; 83735; 84100; 85025; 87493; 97802; 99251; 99284; J7120; A4216; G0463